=== PATIENT | female | born 1995 | race Caucasian/White ===

== ENCOUNTER 2019-01-02 10:52 | Emergency (ER) | payer OTHER ==
[~2019-01-02] VITALS: Ht 154.9 cm; Wt 86.6 kg
[~2019-01-02 10:52] MED LIST: ALBU-136 IH
[2019-01-02 10:59] VITALS: BP 110/63
--- NOTE | 2019-01-02 11:03 | NUR ---
PT AMBULATED TO ER BED 02
--- NOTE | 2019-01-02 11:29 | NUR ---
PT BIB SELF FOR CP X2 DAYS. PT REPORTS TIGHT CP THAT HAPPENS AT REST AT 10/10 AND RADIATES TO BL RIBS. PT REPORTS PEROIDS OF PAIN LASTING FOR 20MIN. PT DENIES PAIN AT THIS TIME. PT DENIES N/V/D, FEVER, BLURRED VISION, OR DIZZYNESS. VSS. ER MD TO SEE PT. MEDHX:ANXIETY RX:NONE
[2019-01-02 12:18] VITALS: BP 110/68
== END 2019-01-02 12:19 | disposition home or self-care (01) ==
LOC: MED 10:52
DX: R07.89 Other chest pain (principal); J45.909 Unspecified asthma, uncomplicated; Z79.899 Other long term (current) drug therapy
CPT/HCPCS: 81002; 93005; 99283

== ENCOUNTER 2019-01-08 20:10 | Emergency (ER) | payer OTHER ==
[~2019-01-08] VITALS: Ht 154.9 cm; Wt 88.0 kg
[2019-01-08 20:19] VITALS: BP 117/59
--- NOTE | 2019-01-08 21:09 | NUR ---
EKG PERFORMED AT TRIAGE ROOM
[2019-01-08 21:38] LABS: BASOPHILS % (AUTO) 0.2 % (0.0-2.0); EOSINOPHILS # (AUTO) 0.3 K/uL (0-0.4); EOSINOPHILS % (AUTO) 2.5 % (0.0-4.0); HEMATOCRIT 45.7 % (36-48); HEMOGLOBIN 15.5 g/dL (12.0-16.0); LYMPHOCYTES # (AUTO) 4.5 K/uL (2.5-16.5); LYMPHOCYTES % (AUTO) 33.4 % (20.5-51.1); MEAN CORPUSCULAR HEMOGLOBIN 28 pg (27-31); MEAN CORPUSCULAR HGB CONC 34 g/dL (33-37); MEAN CORPUSCULAR VOLUME 82.8 fL (80-94); MONOCYTES # (AUTO) 0.7 K/uL (0.8-1.0); MONOCYTES % (AUTO) 4.9 % (1.7-9.3); NEUTROPHILS # (AUTO) 7.9 K/uL (1.8-7.7); PLATELET COUNT (AUTO) 170 K/uL (140-450); RED BLOOD CELL COUNT(AUTO) 5.51 MIL/uL (4.20-5.40); RED CELL DISTRIBUTION WIDTH 13.2 % (11.6-13.7); WHITE BLOOD COUNT (AUTO) 13.4 K/uL (4.8-10.8)
--- NOTE | 2019-01-08 21:43 | NUR ---
PT AMBULATED TO BED 09.
[2019-01-08 21:46] LABS: ANION GAP 13.7 (8-16); CARBON DIOXIDE 28.2 mmol/L (21-32); CREATININE 0.8 mg/dL (0.6-1.3); POTASSIUM 3.9 mmol/L (3.5-5.1)
[2019-01-08 21:53] LABS: ALBUMIN 4.2 g/dL (3.4-5.0); TOTAL BILIRUBIN 0.4 mg/dL (0.0-1.0)
--- NOTE | 2019-01-08 21:55 | NUR ---
PT BIB SELF CO EPISODE OF CHEST PAIN. PT REPORTS THAT SHE HAS HAD THIS PAIN FOR 1 YEAR AND THAT IT OCCURS ABOUT ONCE A MONTH. PT REPORTS HAVING 2 EPISODES TODAY WHICH BROUGHT HER TO THE ER. SHE DESCRIBES THE EPISODES A PRESSURE/TIGHTNESS IN THE EPIGASTRIC REGION. AT THIS TIME, SHE ONLY ADMITS TO HAVING 3/10 DISCOMFORT. -- PMH: DENIES -- RX: PEPCID, BC IMPLANT PT POSITIONED FOR COMFORT. HOB ELEVATED. SIDE RAIL UP X 1. NO APPARENT DISTRESS AT THIS TIME.
[2019-01-08] MEDS ORDERED: KETOROLAC 30 MG/ML VIAL IM ONE (22:45)
--- NOTE | 2019-01-08 23:00 | NUR ---
US at bedside.
--- NOTE | 2019-01-08 23:45 | NUR ---
PT TAKEN DOWN TO CT.
--- NOTE | 2019-01-09 01:10 | NUR ---
Patient appears to be resting comfortably in bed. Vital Signs within normal limits. Respirations even and unlabored. Pt positioned for comfort. HOB elevated. Side rail up X 1. Warm blankets provided. Pt denies pain but admits feeling slight discomfort due to hunger. Explained to pt that she cannot eat at this time due to abd pain. ERMD made aware of pt's condition.
[2019-01-09 02:26] VITALS: BP 100/54
--- NOTE | 2019-01-09 02:26 | NUR ---
Patient discharged with v/s stable. Written and verbal after care instructions given and explained. Patient alert, oriented and verbalized understanding of instructions. Ambulatory with steady gait. All questions addressed prior to discharge. ID band removed. Patient advised to follow up with PMD. Rx of Bentyl, Tylenol and Mylanta given. Patient educated on indication of medication including possible reaction and side effects. Opportunity to ask questions provided and answered.
== END 2019-01-09 02:26 | disposition home or self-care (01) ==
LOC: MED 20:10
DX: K80.00 Calculus of gallbladder with acute cholecystitis without obstruction (principal); Z79.899 Other long term (current) drug therapy
CPT/HCPCS: 36415; 74176; 76705; 80053; 81002; 81025; 83690; 85025; 93005; 96372; 99284; J1885; Q0092

== ENCOUNTER 2019-01-16 18:57 | Emergency (ER) | payer OTHER ==
[~2019-01-16] VITALS: Ht 154.9 cm; Wt 88.0 kg
[2019-01-16 19:22] VITALS: BP 118/78
--- NOTE | 2019-01-16 19:25 | NUR ---
PT AMBULATORY TO ER LOBBY W/ STEADY GAIT IN STABLE CONDITION.
--- NOTE | 2019-01-16 20:14 | NUR ---
PT TAKEN TO BED 1
[2019-01-16] MEDS ORDERED: NACL 0.9% 500 ML IV ONE (20:16)
[2019-01-16] MEDS ORDERED: ONDANSETRON 4 MG/2 ML VIAL IVP ONE (20:20)
[2019-01-16] MEDS ORDERED: KETOROLAC 30 MG/ML VIAL IVP ONE (20:20)
--- NOTE | 2019-01-16 20:45 | NUR ---
C/O EPIGASTRIC PAIN RADIATING TO THE BACK X 1 HOUR. PT W/ RECENT DX GALLSTONES. PATIENT STATES NAUSEA WITHOUT VOMITING. STATES NO FEVER, CHILLS, SOB, CP OR COUGH AT THIS TIME.
[2019-01-16 20:49] LABS: BASOPHILS % (AUTO) 0.3 % (0.0-2.0); EOSINOPHILS # (AUTO) 0.4 K/uL (0-0.4); EOSINOPHILS % (AUTO) 3.3 % (0.0-4.0); HEMATOCRIT 45.7 % (36-48); HEMOGLOBIN 15.3 g/dL (12.0-16.0); LYMPHOCYTES # (AUTO) 3.5 K/uL (2.5-16.5); LYMPHOCYTES % (AUTO) 26.7 % (20.5-51.1); MEAN CORPUSCULAR HEMOGLOBIN 28 pg (27-31); MEAN CORPUSCULAR HGB CONC 34 g/dL (33-37); MEAN CORPUSCULAR VOLUME 83.4 fL (80-94); MONOCYTES # (AUTO) 0.8 K/uL (0.8-1.0); MONOCYTES % (AUTO) 5.8 % (1.7-9.3); NEUTROPHILS # (AUTO) 8.4 K/uL (1.8-7.7); NEUTROPHILS % (AUTO) 63.9 % (42.2-75.2); PLATELET COUNT (AUTO) 151 K/uL (140-450); RED BLOOD CELL COUNT(AUTO) 5.48 MIL/uL (4.20-5.40); WHITE BLOOD COUNT (AUTO) 13.2 K/uL (4.8-10.8)
[2019-01-16 20:56] LABS: ANION GAP 15.1 (8-16); CARBON DIOXIDE 25.6 mmol/L (21-32); CREATININE 0.8 mg/dL (0.6-1.3); POTASSIUM 3.7 mmol/L (3.5-5.1)
[2019-01-16 21:04] LABS: ALBUMIN 3.9 g/dL (3.4-5.0); TOTAL BILIRUBIN 0.4 mg/dL (0.0-1.0)
--- NOTE | 2019-01-16 21:26 | NUR ---
PATIENT REQUESTING JUICE. DR REYES SAID SHE NEEDS TO REMAIN NPO. PATIENT INFORMED.
[2019-01-16 22:32] VITALS: BP 112/75
--- NOTE | 2019-01-16 22:33 | NUR ---
Patient discharged with v/s stable. Written and verbal after care instructions given and explained. Patient alert, oriented and verbalized understanding of instructions. Ambulatory with steady gait. All questions addressed prior to discharge. ID band removed. Patient advised to follow up with PMD. Rx of ZOFRAN, TRAMADOL given. Patient educated on indication of medication including possible reaction and side effects. Opportunity to ask questions provided and answered.
== END 2019-01-16 22:33 | disposition home or self-care (01) ==
LOC: MED 18:57
DX: K80.20 Calculus of gallbladder without cholecystitis without obstruction (principal); Z79.899 Other long term (current) drug therapy
CPT/HCPCS: 36415; 76705; 80053; 81002; 81025; 83690; 85025; 96361; 96374; 96375; 99284; J1885; J2405; J7030; Q0092

== ENCOUNTER 2019-02-03 05:30 | Emergency (ER) | payer OTHER ==
[~2019-02-03] VITALS: Ht 154.9 cm; Wt 81.6 kg
[2019-02-03 05:36] VITALS: BP 123/87
--- NOTE | 2019-02-03 05:38 | NUR ---
PT STATES SEVERE ONSET OF EPIGASTRIC ABD PAIN X1 HR. NON-RADIATING PAIN. ALSO C/O N/V X1 HR. X4 QUADRANT BOWEL SOUNDS PRESENT. TENDER TO PALPATION WITHOUT REBOUND TENDERNESS. POSITIONED IN BED FOR COMFORT. VSS. ER MD AWARE. CONTINUE TO MONITOR.
--- NOTE | 2019-02-03 05:38 | NUR ---
TO ED 02 WITH STEADY GAIT.
[2019-02-03] MEDS ORDERED: KETOROLAC 30 MG/ML VIAL IM ONE (05:50)
--- NOTE | 2019-02-03 05:56 | NUR ---
NO TORADOL 30MG AVAILABLE IN [facility] AT THIS TIME. WEIGHER AND CRUSHER CONTACTED.
--- NOTE | 2019-02-03 06:00 | NUR ---
PT UNABLE TO GIVE URINE AT THIS TIME. GIVEN WATER PO. CONTINUE TO MONITOR.
[2019-02-03] MEDS ORDERED: KETOROLAC 30 MG/ML VIAL ONE (06:09)
[2019-02-03 06:27] LABS: ANION GAP 13.2 (8-16); CARBON DIOXIDE 23.2 mmol/L (21-32); CREATININE 0.8 mg/dL (0.6-1.3); POTASSIUM 3.4 mmol/L (3.5-5.1)
[2019-02-03 06:30] LABS: ALBUMIN 3.3 g/dL (3.4-5.0); TOTAL BILIRUBIN 0.2 mg/dL (0.0-1.0)
--- NOTE | 2019-02-03 06:37 | NUR ---
PT STATES PAIN DECREASED TO 5/10 AND TOLERABLE. VSS. CONTINUE TO MONITOR.
--- NOTE | 2019-02-03 06:38 | NUR ---
PT NOT ABLE TO PROVIDE URINE AT THIS TIME.
[2019-02-03 06:40] LABS: BASOPHILS % (AUTO) 0.2 % (0.0-2.0); MONOCYTES # (AUTO) 0.7 K/uL (0.8-1.0)
[2019-02-03 06:47] LABS: EOSINOPHILS % (AUTO) 9.2 % (0.0-4.0); HEMATOCRIT 41.1 % (36-48); HEMOGLOBIN 14.1 g/dL (12.0-16.0); LYMPHOCYTES # (AUTO) 3.3 K/uL (2.5-16.5); LYMPHOCYTES % (AUTO) 29.5 % (20.5-51.1); MEAN CORPUSCULAR HEMOGLOBIN 28 pg (27-31); MEAN CORPUSCULAR HGB CONC 34 g/dL (33-37); MEAN CORPUSCULAR VOLUME 82.7 fL (80-94); MONOCYTES % (AUTO) 6.4 % (1.7-9.3); NEUTROPHILS # (AUTO) 6.2 K/uL (1.8-7.7); NEUTROPHILS % (AUTO) 54.7 % (42.2-75.2); PLATELET COUNT (AUTO) 140 K/uL (140-450); RED BLOOD CELL COUNT(AUTO) 4.97 MIL/uL (4.20-5.40); RED CELL DISTRIBUTION WIDTH 13.2 % (11.6-13.7); WHITE BLOOD COUNT (AUTO) 11.3 K/uL (4.8-10.8)
[2019-02-03] MEDS ORDERED: HYDROcodone/APAP 5/325 MG 1 TAB TAB PO ONE (07:00)
--- NOTE | 2019-02-03 07:16 | NUR ---
REPORT GIVEN TO
--- NOTE | 2019-02-03 07:16 | NUR ---
PT IS AAOX4. ABLE TO VERBALIZE NEEDS. PT STATES PAIN 8/10 TO EPIGASTRIC. PT STATES NAUSEATED. DENIES VOMITING. HOB UP. BED SIDE RAILS UP X1. ON LOW BED POSITION, LOCKED. ER MADE AWARE OF PT STATUS. WILL CONTINUE TO MONITOR.
--- NOTE | 2019-02-03 07:17 | NUR ---
URINE SPECIMEN OBTAINED. LAB PICKED IT UP.
[2019-02-03 08:22] VITALS: BP 103/65
--- NOTE | 2019-02-03 08:22 | NUR ---
Patient discharged with v/s stable. Written and verbal after care instructions given and explained. Patient alert, oriented and verbalized understanding of instructions. Ambulatory with steady gait. All questions addressed prior to discharge. ID band removed. Patient advised to follow up with PMD. Rx of Tramadol, Zofran, Protonix, Motrin given. Patient educated on indication of medication including possible reaction and side effects. Opportunity to ask questions provided and answered.
== END 2019-02-03 08:22 | disposition home or self-care (01) ==
LOC: MED 05:30
DX: K80.20 Calculus of gallbladder without cholecystitis without obstruction (principal); Z79.899 Other long term (current) drug therapy
CPT/HCPCS: 80053; 81002; 81025; 83690; 85025; 96372; 99283; J1885

== ENCOUNTER 2019-04-05 07:52 | Emergency (ER) | payer OTHER ==
[~2019-04-05] VITALS: Ht 154.9 cm; Wt 88.6 kg
[2019-04-05 07:53] VITALS: BP 136/55
--- NOTE | 2019-04-05 08:02 | NUR ---
PATIENT AMBULATED TO BED 12.
[2019-04-05] MEDS ORDERED: NACL 0.9% 500 ML IV ONE (08:08)
[2019-04-05] MEDS ORDERED: ONDANSETRON 4 MG/2 ML VIAL IVP ONE (08:10)
[2019-04-05] MEDS ORDERED: KETOROLAC 30 MG/ML VIAL IVP ONE (08:10)
--- NOTE | 2019-04-05 08:23 | NUR ---
US tech at bedside.
--- NOTE | 2019-04-05 08:25 | NUR ---
LABS DRAWN BY RN AND WALKED OVER TO LAB BY EMT
[2019-04-05] MEDS ORDERED: KETOROLAC 60 MG/2 ML VIAL IM SCH (08:30)
[2019-04-05 09:02] LABS: HEMATOCRIT 43.8 % (36-48); HEMOGLOBIN 14.9 g/dL (12.0-16.0); MEAN CORPUSCULAR HEMOGLOBIN 28 pg (27-31); MEAN CORPUSCULAR HGB CONC 34 g/dL (33-37); MEAN CORPUSCULAR VOLUME 81.2 fL (80-94); PLATELET COUNT (AUTO) 156 K/uL (140-450); RED BLOOD CELL COUNT(AUTO) 5.39 MIL/uL (4.20-5.40); RED CELL DISTRIBUTION WIDTH 13.1 % (11.6-13.7); WHITE BLOOD COUNT (AUTO) 24.3 K/uL (4.8-10.8)
--- NOTE | 2019-04-05 09:05 | NUR ---
UA DONE, HCG NEG
[2019-04-05 09:16] LABS: LYMPHOCYTES % (MANUAL) 12 % (20-46); MONOCYTES % (MANUAL) 4 % (5-12)
[2019-04-05 09:20] LABS: ANION GAP 15.7 (8-16); POTASSIUM 3.7 mmol/L (3.5-5.1)
[2019-04-05] MEDS ORDERED: MORPHINE SULFATE 2 MG/ML SYR IVP ONE (09:25)
[2019-04-05 09:26] LABS: ALBUMIN 3.8 g/dL (3.4-5.0); TOTAL BILIRUBIN 1.5 mg/dL (0.0-1.0)
[2019-04-05 09:55] VITALS: BP 109/73
--- NOTE | 2019-04-05 09:55 | NUR ---
Patient discharged with v/s stable. Written and verbal after care instructions given and explained. Patient alert, oriented and verbalized understanding of instructions. Ambulatory with steady gait. All questions addressed prior to discharge. ID band removed. Patient advised to follow up with PMD. Rx of ZOFRAN 4MG ODT given. Patient educated on indication of medication including possible reaction and side effects. Opportunity to ask questions provided and answered.
== END 2019-04-05 09:55 | disposition home or self-care (01) ==
LOC: MED 07:52
DX: G89.18 Other acute postprocedural pain (principal); R11.2 Nausea with vomiting, unspecified; Z90.49 Acquired absence of other specified parts of digestive tract; Z79.899 Other long term (current) drug therapy
CPT/HCPCS: 36415; 76705; 80053; 81002; 81025; 83690; 85025; 96361; 96374; 96375; 99284; J1885; J2270; J2405; J7030; Q0092; C1758

== ENCOUNTER 2019-04-08 17:31 | Emergency (ER) | payer OTHER ==
[~2019-04-08] VITALS: Ht 154.9 cm; Wt 86.2 kg
[2019-04-08 17:47] VITALS: BP 125/73
--- NOTE | 2019-04-08 18:00 | NUR ---
dr. schwarz at bedside
[2019-04-08] MEDS ORDERED: MORPHINE SULFATE 4 MG/ML SYR IVP ONE ×2 (18:05→20:20)
[2019-04-08] MEDS ORDERED: ONDANSETRON 4 MG/2 ML VIAL IVP ONE (18:05)
[2019-04-08] MEDS ORDERED: NACL 0.9% 1,000 ML IV ONE (18:05)
--- NOTE | 2019-04-08 18:33 | NUR ---
c/o constant RUQ abd pain 10/10 x 4 days w accompanying subjective fever, n/v/constipation. Pt reports cholecystectomy at [facility] 04/04/19. She states she was reffered to [facility] by her PCP due to continuation of symptoms and abnormal LFT lab values. LBM 2 days ago, abdomen firm and tender to palpation, bowel sounds present x4. Pt denies diarrhea. Bed in low position, side rail up x1.
--- NOTE | 2019-04-08 18:35 | NUR ---
Pt provided with urine cup for sample, she does not need to go right now. Will try in 15 min.
[2019-04-08 18:45] LABS: BASOPHILS % (AUTO) 0.2 % (0.0-2.0); EOSINOPHILS # (AUTO) 0.2 K/uL (0-0.4); EOSINOPHILS % (AUTO) 1.2 % (0.0-4.0); HEMOGLOBIN 14.6 g/dL (12.0-16.0); LYMPHOCYTES # (AUTO) 1.5 K/uL (2.5-16.5); LYMPHOCYTES % (AUTO) 10.5 % (20.5-51.1); MEAN CORPUSCULAR HEMOGLOBIN 28 pg (27-31); MEAN CORPUSCULAR HGB CONC 34 g/dL (33-37); MEAN CORPUSCULAR VOLUME 82.4 fL (80-94); MONOCYTES % (AUTO) 7.1 % (1.7-9.3); NEUTROPHILS # (AUTO) 11.4 K/uL (1.8-7.7); PLATELET COUNT (AUTO) 171 K/uL (140-450); RED BLOOD CELL COUNT(AUTO) 5.22 MIL/uL (4.20-5.40); RED CELL DISTRIBUTION WIDTH 13.2 % (11.6-13.7); WHITE BLOOD COUNT (AUTO) 14.1 K/uL (4.8-10.8)
[2019-04-08 18:56] LABS: ANION GAP 14.5 (8-16); CARBON DIOXIDE 25.1 mmol/L (21-32); CREATININE 0.7 mg/dL (0.6-1.3); POTASSIUM 3.6 mmol/L (3.5-5.1)
[2019-04-08 19:02] LABS: ALBUMIN 3.7 g/dL (3.4-5.0); PROTHROMBIN TIME 9.2 secs (10.8-13.4); TOTAL BILIRUBIN 4.7 mg/dL (0.0-1.0)
[2019-04-08] MEDS ORDERED: HYDR-5122 PO (19:25)
--- NOTE | 2019-04-08 20:16 | NUR ---
PATIENT REPORT GIVENT TO KATERINA CHEN AT [facility]
--- NOTE | 2019-04-08 20:54 | NUR ---
-- PER MEMBERSHIP ASSISTANT YOGI GROVE TO TRANSFER PT W/O CD COPY OF US (RADIOLOGY DEPT UNABLE TO BURN CD AT THIS TIME)
[2019-04-08 21:08] VITALS: BP 135/75
--- NOTE | 2019-04-09 14:00 | NUR ---
Late entry. Confirmed with RN that 1000ml 0.9 NS IV completed at 1925.
== END 2019-04-08 20:35 | disposition short-term general hospital (02) ==
LOC: MED 17:31
DX: R10.11 Right upper quadrant pain (principal); R11.2 Nausea with vomiting, unspecified; R50.9 Fever, unspecified; Z90.49 Acquired absence of other specified parts of digestive tract; Z90.89 Acquired absence of other organs; Z79.891 Long term (current) use of opiate analgesic
CPT/HCPCS: 36415; 76705; 80053; 81002; 81025; 83605; 83690; 85025; 85610; 85730; 87040; 96374; 96375; 96376; 99285; J2270; J2405; J7030

== ENCOUNTER 2021-04-16 09:28 | Emergency (ER) | payer OTHER ==
[~2021-04-16] VITALS: Ht 152.4 cm; Wt 91.6 kg
[~2021-04-16 09:28] MED LIST changes: -ALBU-136 IH; +HYDR-5122 PO
[2021-04-16 09:29] VITALS: BP 118/67
--- NOTE | 2021-04-16 09:34 | NUR ---
pt ambulated to bed 05.
[2021-04-16] MEDS ORDERED: HYDROcodone/APAP 5/325 MG 1 TAB TAB PO ONE (09:50)
--- NOTE | 2021-04-16 10:09 | NUR ---
26 YEAR OLD FEMALE COMPLAINS OF LEFT SHOULDER PAIN X YESTERDAY. PT STATES SHE PICKED UP HER DAUGHTER AND THEN HAS HAD PAIN EVER SINCE. SENSATION AND ROM INTACT IN LEFT ARM. PT AOX4, BREATHING EVEN AND UNLABORED, SKIN WARM AND DRY. BED IN LOWEST POSITION, LOCKED, BED RAIL UPX1. PMH - DENIES ALLERGIES - NKA
[2021-04-16] MEDS ORDERED: IBUP-2213 PO (11:08)
[2021-04-16 11:44] VITALS: BP 118/67
== END 2021-04-16 11:31 | disposition home or self-care (01) ==
LOC: MED 09:28
DX: M25.512 Pain in left shoulder (principal); Z79.899 Other long term (current) drug therapy
CPT/HCPCS: 73030; 81025; 99283

== ENCOUNTER 2021-05-26 18:16 | Emergency (ER) | payer OTHER ==
[~2021-05-26] VITALS: Ht 154.9 cm; Wt 90.7 kg
[~2021-05-26 18:16] MED LIST changes: +IBUP-2213 PO
[2021-05-26 18:31] VITALS: BP 114/62
--- NOTE | 2021-05-26 18:36 | NUR ---
Nacho whitneyamena in [facility] - 05/26/21 at 1837 by [email or web address]: RIGHT EYE 20/40, LEFT EYE 20/50, BOTH EYES 20/40
--- NOTE | 2021-05-26 18:37 | NUR ---
[facility]: RIGHT EYE 20/40, LEFT EYE 20/50, BOTH EYES 20/40
--- NOTE | 2021-05-26 18:37 | NUR ---
WAIT AT LOBBY.
[2021-05-26] MEDS ORDERED: FLUORESCEIN OPTH STRIP 1 MG OP ONE (19:00)
[2021-05-26] MEDS ORDERED: TETRACAINE HCL/PF 0.5% OPTH 4 ML BTL OP ONE (19:00)
[2021-05-26] MEDS ORDERED: TOMOMETER 1 DEV DEV MC ONE (19:39)
--- NOTE | 2021-05-26 19:49 | NUR ---
PT IN TRIAGE ROOM WITH MIRANDA GOMEZ FOR EVALUATION.
[2021-05-26] MEDS ORDERED: IBUP-2213 PO (20:18)
[2021-05-26] MEDS ORDERED: ONDA-24 PO (20:18)
--- NOTE | 2021-05-26 20:55 | NUR ---
Patient discharged with v/s stable. Written and verbal after care instructions given and explained. Patient alert, oriented and verbalized understanding of instructions. Ambulatory with steady gait. All questions addressed prior to discharge. ID band removed. Patient advised to follow up with PMD. Rx of MOTRIN AND ZOFRAN ODT given. Patient educated on indication of medication including possible reaction and side effects. Opportunity to ask questions provided and answered.
== END 2021-05-26 20:55 | disposition home or self-care (01) ==
LOC: MED 18:16
DX: R51.9 Headache, unspecified (principal); R11.2 Nausea with vomiting, unspecified; H57.12 Ocular pain, left eye; Z79.899 Other long term (current) drug therapy
CPT/HCPCS: 99284

== ENCOUNTER 2023-06-07 21:59 | Emergency (ER) | payer OTHER ==
[~2023-06-07] VITALS: Ht 154.9 cm; Wt 95.3 kg
[~2023-06-07 21:59] MED LIST changes: +ONDA-188 PO
[2023-06-07 23:36] VITALS: BP 122/76; PULSE 94; RESP 18; TEMP 97; O2SAT 99
[2023-06-08 03:42] LABS: APPEARANCE,URINE CLOUDY (CLEAR); BILIRUBIN,URINE NEGATIVE (NEGATIVE); BLOOD, URINE TRACE-I (NEGATIVE); COLOR,URINE YELLOW (YELLOW); LEUKOCYTE ESTERASE ,URINE 1+ (NEGATIVE); NITRITE, URINE POSITIVE (NEGATIVE); PROTEIN,URINE NEGATIVE (NEGATIVE); UGLUCOSE NEGATIVE (NEGATIVE); UROBILINOGEN,URINE 0.2 EU/dL (0.2 - 1)
[2023-06-08 04:06] LABS: BACTERIA,URINE >30 (MANY) /HPF (None Seen); MUCUS,URINE 1+ /LPF (None Seen); SQUAMOUS EPITHELIAL CELL,UR 0-3 (FEW) /LPF (0-3 (FEW)); WBC,URINE TOO MANY TO COUNT /HPF (0-5)
[2023-06-08] MEDS ORDERED: CEPH-588 PO (05:34)
[2023-06-08] MEDS ORDERED: NAPR-54 PO (05:34)
== END 2023-06-08 06:24 | disposition home or self-care (01) ==
LOC: MED 21:59
DX: S90.121A Contusion of right lesser toe(s) without damage to nail, initial encounter (principal); N39.0 Urinary tract infection, site not specified; Z79.899 Other long term (current) drug therapy; X58.XXXA Exposure to other specified factors, initial encounter; Y93.89 Activity, other specified; Y92.89 Other specified places as the place of occurrence of the external cause; Y99.8 Other external cause status
CPT/HCPCS: 73630; 81001; 81025; 87086; 99284; Q0092

== ENCOUNTER 2023-12-18 17:45 | Emergency (ER) | payer OTHER ==
[~2023-12-18] VITALS: Ht 154.9 cm; Wt 90.7 kg
[~2023-12-18 17:45] MED LIST changes: +CEPH-588 PO; +NAPR-54 PO
[2023-12-18 17:54] VITALS: BP 103/62; PULSE 71; RESP 16; TEMP 97.8; O2SAT 99
[2023-12-18 20:06] LABS: BASOPHILS % (AUTO) 0.2 % (0.0-2.0); EOSINOPHILS # (AUTO) 0.3 K/uL (0-0.4); HEMATOCRIT 43.3 % (36-48); LYMPHOCYTES # (AUTO) 4.1 K/uL (2.5-16.5); MEAN CORPUSCULAR HEMOGLOBIN 28 pg (27-31); MEAN CORPUSCULAR HGB CONC 35 g/dL (33-37); MEAN CORPUSCULAR VOLUME 81.3 fL (80-94); MONOCYTES # (AUTO) 0.6 K/uL (0.8-1.0); MONOCYTES % (AUTO) 5.2 % (1.7-9.3); NEUTROPHILS # (AUTO) 6.6 K/uL (1.8-7.7); NEUTROPHILS % (AUTO) 56.6 % (42.2-75.2); PLATELET COUNT (AUTO) 198 K/uL (140-450); RED BLOOD CELL COUNT(AUTO) 5.32 MIL/uL (4.20-5.40); RED CELL DISTRIBUTION WIDTH 13.3 % (11.6-13.7); WHITE BLOOD COUNT (AUTO) 11.7 K/uL (4.8-10.8)
[2023-12-18 20:18] LABS: INR 0.93 (0.8-1.2); PARTIAL THROMBOPLASTIN TIME 25.9 secs (22-35.6); PROTHROMBIN TIME 9.8 secs (10.8-13.4)
[2023-12-18 20:28] LABS: APPEARANCE,URINE CLEAR (CLEAR); BILIRUBIN,URINE NEGATIVE (NEGATIVE); BLOOD, URINE 2+ (NEGATIVE); COLOR,URINE YELLOW (YELLOW); LEUKOCYTE ESTERASE ,URINE NEGATIVE (NEGATIVE); NITRITE, URINE NEGATIVE (NEGATIVE); PROTEIN,URINE NEGATIVE (NEGATIVE); UGLUCOSE NEGATIVE (NEGATIVE); UROBILINOGEN,URINE 0.2 EU/dL (0.2 - 1)
[2023-12-18 20:48] LABS: BACTERIA,URINE FEW /HPF (None Seen); SQUAMOUS EPITHELIAL CELL,UR 4-10 (MOD) /LPF (0-3 (FEW)); WBC,URINE 0-5 /HPF (0-5)
[2023-12-18] MEDS ORDERED: ACET-10509 PO (22:45)
[2023-12-18] MEDS ORDERED: ONDA-188 PO (22:45)
[2023-12-18 22:49] VITALS: O2SAT 99
== END 2023-12-18 23:09 | disposition home or self-care (01) ==
LOC: MED 17:45
DX: N93.8 Other specified abnormal uterine and vaginal bleeding (principal); R31.9 Hematuria, unspecified; Z79.899 Other long term (current) drug therapy
CPT/HCPCS: 36415; 76830; 81001; 81025; 85025; 85610; 85730; 87070; 87110; 87210; 87299; 87491; 99284; Q0092

== ENCOUNTER 2023-12-20 20:44 | Emergency (ER) | payer OTHER ==
[~2023-12-20] VITALS: Ht 154.9 cm; Wt 90.7 kg
[~2023-12-20 20:44] MED LIST changes: +ACET-10509 PO
[2023-12-20 21:00] VITALS: BP 118/80; PULSE 75; RESP 16; TEMP 98.2; O2SAT 99
== END 2023-12-20 22:41 | disposition home or self-care (01) ==
LOC: MED 20:44
DX: S63.601A Unspecified sprain of right thumb, initial encounter (principal); T23.171A Burn of first degree of right wrist, initial encounter; Z79.899 Other long term (current) drug therapy; V89.2XXA Person injured in unspecified motor-vehicle accident, traffic, initial encounter; Y93.89 Activity, other specified; Y92.410 Unspecified street and highway as the place of occurrence of the external cause; Y99.8 Other external cause status
CPT/HCPCS: 73110; 73140; 99284